=== PATIENT | female | born 2000 | race Two or more races ===

== ENCOUNTER 2022-09-13 19:27 | Emergency (ER) | payer OTHER ==
[~2022-09-13] VITALS: Ht 149.9 cm; Wt 131.1 kg
[2022-09-13] MEDS ORDERED: FLOVENT DISKUS50 MCG IH (20:00)
[2022-09-14] MEDS ORDERED: CIPRO500 MG PO (00:03)
[2022-09-14] MEDS ORDERED: PEPCID AC20 MG PO (00:03)
== END 2022-09-14 01:34 | disposition home or self-care (01) ==
LOC: ER 19:27
DX: R10.13 Epigastric pain (principal); K76.0 Fatty (change of) liver, not elsewhere classified; R16.0 Hepatomegaly, not elsewhere classified